=== PATIENT | female | born 1990 ===

== ENCOUNTER 2017-08-19 19:18 | Emergency (ER) | payer OTHER ==
[~2017-08-19] VITALS: Ht 160 cm; Wt 158.8 kg
[~2017-08-19 19:18] MED LIST: ALBU90OI INH; AMOX500 PO; BENZ100A PO; CODACE30 PO; HYDACE5 PO; SULTRIDS PO
[2017-08-19] MEDS ORDERED: GABA100 PO (19:54)
[2017-08-19] MEDS ORDERED: LIRA0.6P (19:54)
[2017-08-19] MEDS ORDERED: METF500 PO (19:54)
[2017-08-19] MEDS ORDERED: SERT25 PO (19:54)
[2017-08-19] MEDS ORDERED: PRAV20 PO (19:54)
== END 2017-08-19 20:54 | disposition home or self-care (01) ==
LOC: ER 19:18
DX: S61.211A Laceration without foreign body of left index finger without damage to nail, initial encounter (principal); Z23 Encounter for immunization; J45.909 Unspecified asthma, uncomplicated; E11.9 Type 2 diabetes mellitus without complications; Z79.899 Other long term (current) drug therapy; Z79.84 Long term (current) use of oral hypoglycemic drugs; W27.2XXA Contact with scissors, initial encounter
CPT/HCPCS: 12001; 90471; 90714; 99283